=== PATIENT | female | born 1995 | race Caucasian/White ===

== ENCOUNTER 2018-01-03 10:03 | Emergency (ER) | payer SELFPAY ==
[2018-01-03] MEDS ORDERED: MAGNE/ALUM HYDROXD 30 ML UCUP ONE (12:14)
[2018-01-03] MEDS ORDERED: NA CHLORIDE 0.9% 1,000 ML ONE (12:14)
[2018-01-03] MEDS ORDERED: LIDOCAINE VISCOUS 2% SOLN 15 ML UDC ONE (12:15)
[2018-01-03 12:16] LABS: Absolute Lymphocytes (CBC) 1.5 K/uL (0.7-4.9); Absolute Monocytes 1.1 K/uL (0.1-1.3); Basophils % 0.4 % (0-1.3); Eosinophils % 1.1 % (0-4.4); Hematocrit 40.7 % (36.0-45.0); MCH 28.6 pg (27.0-35.0); MCV 82.6 fL (80-100); MPV 8.9 fL (7.6-11.3); Monocytes % 10.3 % (3.3-12.3); RBC Red Blood Cell Count 4.92 M/uL (3.86-4.86)
[2018-01-03 12:22] LABS: ALT/SGPT 14 U/L (12-78); AST/SGOT 14 U/L (15-37); Albumin 3.7 g/dL (3.4-5.0); Alkaline Phosphatase 81 U/L (45-117); BUN Blood Urea Nitrogen 7 mg/dL (7-18); Bicarbonate 24 mmol/L (21-32); Bilirubin Direct 0.1 mg/dL (0-0.2); Bilirubin Total 0.4 mg/dL (0.2-1.0); Glucose Level 93 mg/dL (74-106); Lipase 124 U/L (73-393); Potassium 3.2 mmol/L (3.5-5.1); Protein, Total 8.6 g/dL (6.4-8.2); Sodium Level 133 mmol/L (136-145)
--- NOTE | 2018-01-03 12:26 | RAD REPORT ---
EXAM DESCRIPTION: US - Abdomen Exam Limited - 01/03/2018 12:16 pm CLINICAL HISTORY: ABD PAIN COMPARISON: None. FINDINGS: A 3 mm polyp is present. No gallstones, sludge or other abnormalities within the gallbladd er lumen. There is no wall thickening or pericholecystic fluid. No common duct stone or biliary tree dilatation identified. IMPRESSION: A 3 millimeter polyp is present. No other gallbladder or biliary tree finding.
[2018-01-03 12:29] LABS: Urine Blood 1+ (NEG); Urine Glucose NEGATIVE (NEG); Urine Protein 2+ (NEG)
[2018-01-03 12:32] LABS: Urine Bacteria 20-50 /HPF (<20); Urine Culture Reflex Order REFLEXED; Urine RBC <5 /HPF (NONE SEEN)
--- NOTE | 2018-01-03 14:47 | RAD REPORT ---
EXAM DESCRIPTION: CT - Abdomen Pelvis W Contrast - 01/03/2018 2:22 pm CLINICAL HISTORY: Persistent abdominal pain, prior appendectomy COMPARISON: Gallbladder ultrasound same date TECHNIQUE: Biphasic, helical CT imaging of the abdomen and pelvis was performed following 100 ml non -ionic IV contrast. Oral contrast was given. All CT scans are performed using dose optimization technique as appropriate and may include automated exposure control or mA/KV adjustment according to patient size. FINDINGS: No suspicious findings in the lung bases. The liver, spleen, and pancreas show no suspicious findings. Gallbladder is partially contracted. Ear lier ultrasound showed a 3 millimeter polyp with no other significant gallbladder or biliary tree fin ding. There is no biliary dilatation on the CT study. Symmetric renal function is seen with no hydronephrosis or suspicious renal mass. No pyelonephritis o r acute renal parenchymal process. No urinary bladder abnormality. No significant finding of the uter us. Left ovary contains a few small cysts under 2 cm in size. Small follicles of the right ovary up a re seen. No fallopian tube dilatation. Primary LATEX CASTER process is unlikely. Physiologic quantity of free fluid is present. No free air. No gastric dilatation or gastric wall thickening. Small bowel loops are prominent and have relatively prominent saha through much of the small bowel. There may be some questionable stranding adjacent t o the colon at the descending sigmoid junction. Saha of the tip of the cecum are mildly prominent. A ppendectomy clips are present. No free air or pneumatosis. A few small nonspecific left inguinal lymph nodes are present. No bulk y lymphadenopathy. No omental thickening. No suspicious soft tissue mass. No adrenal abnormality. No suspicious bony findings. IMPRESSION: No bowel obstruction, free air or surgically emergent finding. Small bowel enteritis pattern is present. There is some questionable colitis change at the descending sigmoid junction. Cysts are seen in the ovaries and there is a small amount of free fluid in the pelvis within physiolo gic limits. A primary LATEX CASTER process is unlikely. No acute finding.
--- NOTE | 2018-01-03 14:52 | ER ---
Nurse's Notes [facility] Name: Renetta Tay Age: 22 yrs Sex: Female : 1995 Arrival Date: 01/03/2018 Time: 10:05 Bed 27 Private MD: Baldomero Santo W Diagnosis: Colitis and enteritis Presentation: 01/03 10:10 Presenting complaint: Patient states: She has been having abdominal cramping that has aj1 gotten progressively worse for the past week. Reports she went to see her ELECTROCHEMIST regarding this complaint and was referred to the emergency room. Denies N/V/D. Denies fever. Denies abnormal vaginal discharge. Transition of care: patient was not received from another setting of care. Onset of symptoms was December 26, 2017. Risk Assessment: Do you want to hurt yourself or someone else? Patient reports no desire to harm self or others. Initial Sepsis Screen: Does the patient meet any 2 criteria? HR > 90 bpm. No. Patient's initial sepsis screen is negative. Does the patient have a suspected source of infection? Yes: Acute abdominal pain. Care prior to arrival: None. 10:10 Method Of Arrival: Ambulatory aj1 10:10 Acuity: MELANIE 3 aj1 Triage Assessment: 10:13 General: Appears in no apparent distress. comfortable, Behavior is calm, cooperative, aj1 appropriate for age. Pain: Complains of pain in right lower quadrant and left lower quadrant Pain currently is 5 out of 10 on a pain scale. Quality of pain is described as crampy. Neuro: Level of Consciousness is awake, alert, obeys commands. Cardiovascular: Patient's skin is warm and dry. Respiratory: Airway is patent Respiratory effort is even, unlabored, Respiratory pattern is regular, symmetrical. GI: Reports lower abdominal pain, Patient currently denies diarrhea, nausea, vomiting. : Denies burning with urination, discharge, urinary frequency. 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 - Social history:: Smoking status: Patient/guardian denies using tobacco. - Ebola Screening: : Patient denies travel to an Ebola-affected area in the 21 days before illness onset. - Family history:: not pertinent. - Hospitalizations: : No recent hospitalization is reported. Screenin:29 Abuse screen: Denies threats or abuse. Denies injuries from another. Nutritional iw screening: No deficits noted. Tuberculosis screening: No symptoms or risk factors identified. 15:07 Fall Risk None identified. rv Assessment: 12:28 General: Appears in no apparent distress. Behavior is calm, cooperative. Pain: iw Complains of pain in right upper quadrant and left upper quadrant Pain. Neuro: Level of Consciousness is awake, alert, obeys commands. Cardiovascular: Patient's skin is warm and dry. Respiratory: Respiratory effort is even, unlabored, Respiratory pattern is regular, symmetrical. GI: Bowel sounds present X 4 quads. Abd is soft X 4 quads Abdomen is tender to palpation in right upper quadrant Patient currently denies diarrhea, nausea, vomiting. : Denies burning with urination. Derm: Skin is intact, is healthy with good turgor. Musculoskeletal: Range of motion: intact in all extremities. 12:57 Reassessment: Patient appears in no apparent distress at this time. Patient and/or iw family updated on plan of care and expected duration. Pain level reassessed. Patient is alert, oriented x 3, equal unlabored respirations, skin warm/dry/pink. 14:28 Reassessment: Patient appears in no apparent distress at this time. Patient and/or iw family updated on plan of care and expected duration. Pain level reassessed. Patient is alert, oriented x 3, equal unlabored respirations, skin warm/dry/pink. Vital Signs: 10:13 BP 135 / 94; Pulse 104; Resp 18; Temp 97.1(TE); Pulse Ox 99% on R/A; Weight 61.23 kg aj1 (R); Height 5 ft. 6 in. (167.64 cm) (R); Pain 5/10; 12:15 BP 139 / 95; Pulse 79; Resp 16; Pulse Ox 100% on R/A; iw 14:28 BP 119 / 67; Pulse 80; Resp 16; Pulse Ox 100% on R/A; Pain 4/10; iw 10:13 Body Mass Index 21.79 (61.23 kg, 167.64 cm) aj1 ED Course: 10:05 Patient arrived in ED. sb2 10:05 Baldomero Santo MD is Private Physician. sb2 10:12 Triage completed. aj1 10:13 Arm band placed on Patient placed in waiting room, Patient notified of wait time. aj1 11:39 Merna Leon, HELEN is Primary Nurse. iw 11:41 Colin Bennett MD is Attending Physician. rn 12:00 Initial lab(s) drawn, by me, sent to lab. Inserted saline lock: 20 gauge in right iw antecubital area, using aseptic technique. Blood collected. 12:16 US Abdomen Limited In Process Unspecified. EDMS 12:20 Ultrasound completed. hr 14:22 CT Abd/Pelvis - W/Contrast In Process Unspecified. EDMS 14:51 Baldomero Santo MD is Referral Physician. rn 15:06 Patient has correct armband on for positive identification. Call light in reach. Side rv rails up X 1. Adult w/ patient. Pulse ox on. NIBP on. 15:07 No provider procedures requiring assistance completed. IV discontinued, bleeding rv controlled, No redness/swelling at site. Pressure dressing applied. Administered Medications: 12:27 Drug: NS 0.9% 1000 ml Route: IV; Rate: 1000 ml; Site: right antecubital; iw 15:05 Follow up: IV Status: Completed infusion rv 12:27 Drug: GI Cocktail without - (Maalox Suspension 30 ml, Lidocaine Liquid 2 % 15 iw ml) Route: PO; 15:05 Follow up: Response: No adverse reaction rv 15:04 Drug: Cipro 500 mg Route: PO; rv 15:05 Follow up: Response: Medication administered at discharge. rv 15:04 Drug: Flagyl 500 mg Route: PO; rv 15:05 Follow up: Response: Medication administered at discharge. rv Outcome: 14:51 Discharge ordered by . rn 15:07 Discharged to home ambulatory. rv 15:07 Condition: improved 15:07 Discharge instructions given to patient, Instructed on discharge instructions, follow up and referral plans. medication usage, Demonstrated understanding of instructions, follow-up care, medications, Prescriptions given X 2. 15:08 Patient left the ED. rv Signatures: Dispatcher [employer] EDAL Kajal Maria RN RN aj1 Sofia Castellanos Irene, RN RN Colin Rivas MD MD rn Billeau, Sheri sb2 Dylan Mendoza RN RN rv
--- NOTE | 2018-01-03 14:52 | EDPHYS ---
Physician Documentation [facility] Name: Renetta Tay Age: 22 yrs Sex: Female : 1995 Arrival Date: 01/03/2018 Time: 10:05 Bed 27 Private MD: Baldomero Santo W ED Physician Colin Bennett HPI: 01/03 12:10 This 22 yrs old Female presents to ER via Ambulatory with complaints of rn Abdominal Pain. 12:10 The patient presents with abdominal pain in the upper abdomen. Onset: The rn symptoms/episode began/occurred 1 week(s) ago. The symptoms do not radiate. Associated signs and symptoms: Pertinent negatives: nausea and vomiting, blood in stools, chest pain, constipation, diarrhea, dysuria, fever, hematuria, palpitations, shortness of breath, vaginal discharge, vomiting, vomiting blood. The symptoms are described as achy, intermittent, sharp. Modifying factors: The symptoms are alleviated by nothing, the symptoms are aggravated by movement, touching the area. Severity of pain: At its worst the pain was moderate in the emergency department the pain is unchanged. The patient has not experienced similar symptoms in the past. Reports upper abd pain for 1 week, intermittent, no fever/nausea/vomiting/diarrhea, went to her OB today, sent here. NO vaginal discharge, no cough/sob.. 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 - Social history:: Smoking status: Patient/guardian denies using tobacco. - Ebola Screening: : Patient denies travel to an Ebola-affected area in the 21 days before illness onset. - Family history:: not pertinent. - Hospitalizations: : No recent hospitalization is reported. ROS: 12:10 Constitutional: Negative for fever, chills, and weight loss, Eyes: Negative for injury, rn pain, redness, and discharge, Neck: Negative for injury, pain, and swelling, Cardiovascular: Negative for chest pain, palpitations, and edema, Respiratory: Negative for shortness of breath, cough, wheezing, and pleuritic chest pain, Abdomen/GI: + abd pain MS/Extremity: Negative for injury and deformity, Skin: Negative for injury, rash, and discoloration, Neuro: Negative for headache, weakness, numbness, tingling, and seizure. Exam: 12:10 Constitutional: This is a well developed, well nourished patient who is awake, alert, rn and in no acute distress. Head/Face: Normocephalic, atraumatic. Eyes: Pupils equal round and reactive to light, extra-ocular motions intact. Lids and lashes normal. Conjunctiva and sclera are non-icteric and not injected. Cornea within normal limits. Periorbital areas with no swelling, redness, or edema. Neck: Trachea midline, no thyromegaly or masses palpated, and no cervical lymphadenopathy. Supple, full range of motion without nuchal rigidity, or vertebral point tenderness. No Meningismus. Cardiovascular: tachycardic, regular, no murmur Respiratory: Lungs have equal breath sounds bilaterally, clear to auscultation and percussion. No rales, rhonchi or wheezes noted. No increased work of breathing, no retractions or nasal flaring. Abdomen/GI: soft, + RUQ/epigastric abd tenderness, no rebound Skin: Warm, dry with normal turgor. Normal color with no rashes, no lesions, and no evidence of cellulitis. MS/ Extremity: Pulses equal, no cyanosis. Neurovascular intact. Full, normal range of motion. Equal circumference. Neuro: Awake and alert, GCS 15, oriented to person, place, time, and situation. Cranial nerves II-XII grossly intact. Motor strength 5/5 in all extremities. Sensory grossly intact. Cerebellar exam normal. Normal gait. Vital Signs: 10:13 BP 135 / 94; Pulse 104; Resp 18; Temp 97.1(TE); Pulse Ox 99% on R/A; Weight 61.23 kg aj1 (R); Height 5 ft. 6 in. (167.64 cm) (R); Pain 5/10; 12:15 BP 139 / 95; Pulse 79; Resp 16; Pulse Ox 100% on R/A; iw 14:28 BP 119 / 67; Pulse 80; Resp 16; Pulse Ox 100% on R/A; Pain 4/10; iw 10:13 Body Mass Index 21.79 (61.23 kg, 167.64 cm) aj1 MDM: 11:41 Patient medically screened. rn 14:50 Differential diagnosis: cholecystitis, Cholelithiasis, gastritis, gastroesophageal rn reflux disease, non-specific abd pain, pancreatitis, Peptic Ulcer Disease, Ureterolithiasis, urinary tract infection. Data reviewed: vital signs, nurses notes, lab test result(s), radiologic studies, CT scan, ultrasound, and as a result, I will discharge patient. Counseling: I had a detailed discussion with the patient and/or guardian regarding: the historical points, exam findings, and any diagnostic results supporting the discharge/admit diagnosis, lab results, radiology results, the need for outpatient follow up, to return to the emergency department if symptoms worsen or persist or if there are any questions or concerns that arise at home. Special discussion: I discussed with the patient/guardian in detail that at this point there is no indication for admission to the hospital. It is understood, however, that if the symptoms persist or worsen the patient needs to return immediately for re-evaluation. 01/03 11:47 Order name: Basic Metabolic Panel; Complete Time: 12:41 rn 01/03 11:47 Order name: CBC with Diff; Complete Time: 12:41 rn 01/03 11:47 Order name: Hepatic Function; Complete Time: 12:41 rn 01/03 11:47 Order name: Lipase; Complete Time: 12:41 rn 01/03 11:47 Order name: Urine Microscopic Only; Complete Time: 12:41 rn 01/03 12:26 Order name: Urine Dipstick--Ancillary (enter results); Complete Time: 12:41 eb 01/03 11:47 Order name: CT Abd/Pelvis - W/Contrast; Complete Time: 14:49 rn 01/03 11:47 Order name: US Abdomen Limited; Complete Time: 12:41 rn 01/03 12:26 Order name: Urine --Ancillary (enter results); Complete Time: 12:41 eb 01/03 12:35 Order name: Urine Culture EDVA 01/03 11:47 Order name: IV Saline Lock; Complete Time: 12:28 rn 01/03 11:47 Order name: Labs collected and sent; Complete Time: 12:28 rn 01/03 11:47 Order name: Urine Test (obtain specimen); Complete Time: 12: rn 01/03 11:47 Order name: Urine Dipstick-Ancillary (obtain specimen); Complete Time: 12: rn 01/03 12:10 Order name: Glucose Level; Complete Time: : rn Administered Medications: 12 Drug: NS 0.9% 1000 ml Route: IV; Rate: 1000 ml; Site: right antecubital; iw 15:05 Follow up: IV Status: Completed infusion rv 12:27 Drug: GI Cocktail without - (Maalox Suspension 30 ml, Lidocaine Liquid 2 % 15 iw ml) Route: PO; 15:05 Follow up: Response: No adverse reaction rv 15:04 Drug: Cipro 500 mg Route: PO; rv 15:05 Follow up: Response: Medication administered at discharge. rv 15:04 Drug: Flagyl 500 mg Route: PO; rv 15:05 Follow up: Response: Medication administered at discharge. rv Disposition: 01/03/18 14:51 Discharged to Home. Impression: Colitis and enteritis. - Condition is Stable. - Discharge Instructions: Abdominal Pain, Adult, Viral Gastroenteritis, Adult, Colitis. - Prescriptions for Flagyl 500 mg Oral Tablet - take 1 tablet by ORAL route every 8 hours for 10 days; 30 tablet. Cipro 500 mg Oral Tablet - take 1 tablet by ORAL route every 12 hours for 10 days; 20 tablet. - Medication Reconciliation Form, Thank You Letter, Antibiotic Education, Prescription Opioid Use form. - Follow up: Baldomero Sanot MD; When: As needed; Reason: Recheck today's complaints, Re-evaluation by your physician. - Problem is an ongoing problem. - Symptoms have improved. Signatures: Dispatcher [employer] Kajal Gómez RN RN aj1 Merna Leon RN RN iw Nieto, Roman, MD MD rn Vicente, Ronaldo, RN RN rv Corrections: (The following items were deleted from the chart) 15:08 14:51 01/03/2018 14:51 Discharged to Home. Impression: Colitis and enteritis. Condition rv is Stable. Forms are Medication Reconciliation Form, Thank You Letter, Antibiotic Education, Prescription Opioid Use. Follow up: Baldomero Santo; When: As needed; Reason: Recheck today's complaints, Re-evaluation by your physician. Problem is an ongoing problem. Symptoms have improved. rn
[2018-01-03] MEDS ORDERED: CIPROFLOXACIN HCL 500 MG TAB ONE (15:00)
[2018-01-03] MEDS ORDERED: metroNIDAZOLE 500 MG TABLET ONE (15:00)
== END 2018-01-03 15:08 | disposition home or self-care (01) ==
LOC: ER 10:03
DX: K52.9 Noninfective gastroenteritis and colitis, unspecified (principal)
CPT/HCPCS: 36415; 74177; 76705; 80048; 80076; 81003; 81015; 81025; 83690; 85025; 87086; 87088; 96360; 96361; 99284; J7030; Q9967